=== PATIENT | female | born 1970 | race Two or more races ===

== ENCOUNTER 2018-03-12 08:03 | Outpatient (CLI) | payer OTHER | END 2018-03-12 08:23 | disposition home or self-care (01) | LOC: MAMO-SONO 08:03 | DX: Z12.31 Encounter for screening mammogram for malignant neoplasm of breast (principal); N83.209 Unspecified ovarian cyst, unspecified side; N63.11 Unspecified lump in the right breast, upper outer quadrant; N63.14 Unspecified lump in the right breast, lower inner quadrant; N64.4 Mastodynia ==

== ENCOUNTER 2018-03-12 09:58 | Outpatient (CLI) | payer OTHER | END 2018-03-12 17:00 | disposition home or self-care (01) | LOC: TOM 09:58 → MAMO-SONO 10:15 → TOM 17:00 | DX: R10.12 Left upper quadrant pain (principal) ==

== ENCOUNTER 2018-09-24 12:50 | Outpatient (CLI) | payer OTHER | END 2018-09-24 12:57 | disposition home or self-care (01) | LOC: SONOGRAMA 12:50 → MAMO-SONO 13:15 | DX: Q61.00 Congenital renal cyst, unspecified (principal) ==

== ENCOUNTER 2019-04-17 08:01 | Outpatient (CLI) | payer OTHER | END 2019-04-17 08:11 | disposition home or self-care (01) | LOC: MAMO-SONO 08:01 | DX: Z12.31 Encounter for screening mammogram for malignant neoplasm of breast (principal); N64.4 Mastodynia ==

== ENCOUNTER 2019-05-15 08:06 | Outpatient (CLI) | payer OTHER | END 2019-05-15 08:13 | disposition home or self-care (01) | LOC: SONOGRAMA 08:06 → MAMO-SONO 09:15 | DX: N83.201 Unspecified ovarian cyst, right side (principal); D25.9 Leiomyoma of uterus, unspecified ==

== ENCOUNTER 2020-08-10 08:24 | Outpatient (CLI) | payer OTHER | END 2020-08-10 08:38 | disposition home or self-care (01) | LOC: RAD 08:24 | PROVIDERS: ATTEND Obstetrics & Gynecology | DX: K80.80 Other cholelithiasis without obstruction (principal); Q61.01 Congenital single renal cyst; K44.9 Diaphragmatic hernia without obstruction or gangrene; N64.4 Mastodynia; D25.9 Leiomyoma of uterus, unspecified; Z12.31 Encounter for screening mammogram for malignant neoplasm of breast; J32.8 Other chronic sinusitis; J34.2 Deviated nasal septum ==

== ENCOUNTER 2020-08-13 08:48 | Outpatient (CLI) | payer OTHER | END 2020-08-13 09:07 | disposition home or self-care (01) | LOC: TOM 08:48 | PROVIDERS: ATTEND Family Medicine | DX: K57.30 Diverticulosis of large intestine without perforation or abscess without bleeding (principal); Q61.01 Congenital single renal cyst; R10.84 Generalized abdominal pain; K51.90 Ulcerative colitis, unspecified, without complications; K80.80 Other cholelithiasis without obstruction; K44.9 Diaphragmatic hernia without obstruction or gangrene ==

== ENCOUNTER 2021-08-23 10:03 | Outpatient (CLI) | payer OTHER | END 2021-08-23 10:22 | disposition home or self-care (01) | LOC: MAMO-SONO 10:03 | PROVIDERS: ATTEND Obstetrics & Gynecology | DX: N64.4 Mastodynia (principal); D25.9 Leiomyoma of uterus, unspecified ==

== ENCOUNTER → 2024-04-04 | Outpatient (CLI) | payer OTHER | END | disposition home or self-care (01) | LOC: TOM 12:52 | DX: M54.51 Vertebrogenic low back pain (principal) ==

== ENCOUNTER 2024-04-09 07:36 | Outpatient (CLI) | payer OTHER | END 2024-04-09 07:39 | disposition home or self-care (01) | LOC: NUCLEAR 07:36 | PROVIDERS: ATTEND Family Medicine | DX: I73.9 Peripheral vascular disease, unspecified (principal) ==

== ENCOUNTER 2025-04-14 14:03 | Outpatient (CLI) | payer OTHER | END 2025-04-14 14:24 | disposition home or self-care (01) | LOC: MAMO-SONO 14:03 | DX: R10.2 Pelvic and perineal pain (principal); N64.4 Mastodynia; Z12.31 Encounter for screening mammogram for malignant neoplasm of breast ==